=== PATIENT | male | born 1990 | race Caucasian/White ===

== ENCOUNTER 2019-08-02 20:46 | Emergency (ER) | payer BC, SELFPAY ==
[2019-08-02] MEDS ORDERED: Amoxicillin 500 MG Cap PO ONE (20:47)
[2019-08-02] MEDS ORDERED: Ketorolac 60 MG/2 ML SDV IM ONE (21:11)
--- NOTE | 2019-08-02 21:13 | EDM.PDOC ---
ED HPI GENERAL MEDICAL PROBLEM - General Chief Complaint: General Stated Complaint: INFECTED TOOTH Time Seen by Provider: 08/02/19 21:00 Source of Information: Reports: Patient, Old Records History Limitations: Reports: No Limitations - History of Present Illness INITIAL COMMENTS - FREE TEXT/NARRATIVE: Ollie returns to [facility] ED with dental pain involving the R mandibular ridge, symptomatic over the past week. He has had issues with this caried molar in the past for nearly a year, and has not sought DDS treatment. He has tried antibx and analgesics in the past. - Related Data Allergies Allergy/AdvReac Type Severity Reaction Status Date / Time No Known Allergies Allergy Verified 08/02/19 21:12 Home Meds: Home Meds NK [No Known Home Meds] 08/02/19 [History] ED ROS GENERAL - Review of Systems Review Of Systems: Comprehensive ROS is negative, except as noted in HPI. ED EXAM, GENERAL - Physical Exam Exam: See Below Exam Limited By: No Limitations General Appearance: Alert, WD/WN, Mild Distress, Thin Eye Exam: Bilateral Eye: EOMI, Normal Inspection, PERRL Ears: Normal External Exam Nose: Normal Inspection Throat/Mouth: Normal Lips, Normal Gums, Normal Oropharynx, Normal Voice, No Airway Compromise, Other (#31 deeply caried tooth with inflammation, no discharge, exquisite tenderness) Head: Normocephalic Neck: Normal Inspection, Supple Respiratory/Chest: Lungs Clear Cardiovascular: Regular Rate, Rhythm Back Exam: Normal Inspection Extremities: Normal Inspection Neurological: Alert, Oriented, CN II-XII Intact, No Motor/Sensory Deficits Psychiatric: Normal Affect, Normal Mood Skin Exam: Warm, Dry, Intact Lymphatic: No Adenopathy Course - Vital Signs Text/Narrative:: Following assessment, I administered Toradol 60 mg IM, and will prescribe antibx pending eventual DDS management. - Orders/Labs/Meds Meds: Medications Discontinued Medications Generic Name Dose Route Start Last Admin Trade Name Freq PRN Reason Stop Dose Admin Ketorolac Tromethamine 60 mg 08/02/19 21:11 08/02/19 21:18 Toradol IM 08/02/19 21:12 60 mg ONETIME ONE Administration Departure - Departure Time of Disposition: 21:18 Disposition: Home, Self-Care 01 Condition: Fair Clinical Impression: Infected dental caries - Discharge Information *PRESCRIPTION DRUG MONITORING PROGRAM REVIEWED*: Not Applicable *COPY OF PRESCRIPTION DRUG MONITORING REPORT IN PATIENT ANA: Not Applicable Instructions: Amoxicillin capsules or tablets, Dental Abscess Forms: ED Department Discharge - Problem List & Annotations (1) Infected dental caries SNOMED Code(s): 26624404 Code(s): K02.9 - DENTAL CARIES, UNSPECIFIED; K04.7 - PERIAPICAL ABSCESS WITHOUT SINUS Status: Acute Current Visit: Yes Annotation/Comment:: I dispensed Amoxicillin 500mg tid, oil of cloves cotton pledgets and NSAIDS for pain, and need to see DDS. - Problem List Review Problem List Initiated/Reviewed/Updated: Yes - Assessment/Plan Plan: Follow up with DDS.
== END 2019-08-02 21:36 | disposition home or self-care (01) ==
LOC: FB.ED 20:46
DX: K04.7 Periapical abscess without sinus (principal); K02.9 Dental caries, unspecified
CPT/HCPCS: 96372; 99283; A9270; J1885

== ENCOUNTER 2023-04-04 23:47 | Emergency (ER) | payer SELFPAY ==
[2023-04-05] MEDS: Sodium Chloride 0.9% 1,000 ML IV SCH
[2023-04-05] MEDS: HYDROmorphone 2 MG/ML SDV IVPUSH ONE ×2 (00:16→01:00)
[2023-04-05] MEDS: Erythromycin Base 0.5% Ophth Oint 1 GM Tube EYEBOTH ONE (00:18)
[2023-04-05] MEDS: fentaNYL 100 MCG/2 ML SDV IVPUSH ONE ×2 (00:19)
[2023-04-05] MEDS: Ketorolac 30 MG/ML SDV IVPUSH ONE (00:26)
[2023-04-05] MEDS: fentaNYL 100 MCG/2 ML SDV IM ONE (00:32)
[2023-04-05] MEDS: Sodium Chloride 0.9% 1,000 ML IV STA (01:00)
== END 2023-04-05 01:30 ==
LOC: FB.ED 23:47
DX: T20.27XA Burn of second degree of neck, initial encounter (principal); T20.212A Burn of second degree of left ear [any part, except ear drum], initial encounter; T20.211A Burn of second degree of right ear [any part, except ear drum], initial encounter; T26.42XA Burn of left eye and adnexa, part unspecified, initial encounter; T26.41XA Burn of right eye and adnexa, part unspecified, initial encounter; Z72.0 Tobacco use; X08.8XXA Exposure to other specified smoke, fire and flames, initial encounter; W40.1XXA Explosion of explosive gases, initial encounter; Y99.0 Civilian activity done for income or pay
CPT/HCPCS: 96361; 96374; 96375; 96376; 99284; 99284-25; A9270-GY; J1170; J1885; J3010; J7030